=== PATIENT | male | born 1960 | race Caucasian/White ===

== ENCOUNTER 2024-10-03 17:53 | Emergency (ER) | payer SELFPAY ==
[2024-10-03 17:55] VITALS: BP 153/88
--- NOTE | 2024-10-03 18:21 | ED.MUSCINJ ---
HPI-Injury
<Caden Guzman PA-C - Last Filed: 10/03/24 20:13>
General
Chief Complaint: Trauma Significant Mechanism
Source: patient
Exam Limitations: none
Time Seen by Provider: 10/03/24 18:11
History of Present Illness-Injury
Initial Injury comments:
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 He tripped and fell forward down a 12 foot embankment. He felt crunching in his chest and he complains of pain in the left buttock. He felt
initially like he was going to pass out but that has since resolved. He notes mild abdominal pain as well. He is not anticoagulated.
Phy Exam
<Caden Guzman PA-C - Last Filed: 10/03/24 20:13>
Physical Exam
Physical Exam:
General: Well-appearing male no acute respiratory distress
HEENT normocephalic atraumatic pupils equal round reactive to light
Heart: Regular rate and rhythm no murmurs
Lungs: Breath sounds heard in all crandall
Abdomen is soft mildly tender no ecchymosis
MSK exam: The patient is tender over the anterior chest wall without step-off or deformity the left posterior buttock is tender he is tender mildly diffusely about the thoracolumbar spine
Skin is intact without laceration
Neurologic alert and oriented good sensation and strength in the upper and lower extremities
Injury Course
<Caden Guzman PA-C - Last Filed: 10/03/24 20:13>
Orders/Labs/Results
Orders:
Orders
10/03/24 18:18
CT Cervical Spine W/o Iv Contr Urgent
Comment:
Reason For Exam: fall
CT Chest/abd/pel W Iv Cont Urgent
Comment:
Reason For Exam: trauma
CT Head W/o Iv Contrast Urgent
Comment:
Reason For Exam: fall
10/03/24 18:26
Complete Blood Count/With Diff Urgent
Comprehensive Metabolic Panel Urgent
Abnormal Lab Results
10/03/24
18:26
RBC 4.13 L 10^6/uL
(4.70-6.10)
Hgb 12.9 L g/dL
(13.0-18.0)
Hct 38.1 L %
(39.0-52.0)
MCH 31.2 H pg
(27.0-31.0)
MPV 10.6 H fL
(7.4-10.4)
Immature Gran % 0.6 H %
(0-0.5)
Lymphocytes % 19.6 L %
(20.5-51.1)
Monocytes % 9.4 H %
(1.7-9.3)
Chloride 110 H mmol/L
(98-107)
BUN 24 H mg/dl
(9-20)
Glucose 135 H mg/dl
(70-99)
10/03/24 18:26
10/03/24 18:26
Estherlt;Jean Donaldson, DO - Last Filed: 10/03/24 19:00>
Orders/Labs/Results
Orders:
Orders
10/03/24 18:18
CT Cervical Spine W/o Iv Contr Urgent
Comment:
Reason For Exam: fall
CT Chest/abd/pel W Iv Cont Urgent
Comment:
Reason For Exam: trauma
CT Head W/o Iv Contrast Urgent
Comment:
Reason For Exam: fall
10/03/24 18:26
Complete Blood Count/With Diff Urgent
Comprehensive Metabolic Panel Urgent
Abnormal Lab Results
10/03/24
18:26
RBC 4.13 L 10^6/uL
(4.70-6.10)
Hgb 12.9 L g/dL
(13.0-18.0)
Hct 38.1 L %
(39.0-52.0)
MCH 31.2 H pg
(27.0-31.0)
MPV 10.6 H fL
(7.4-10.4)
Immature Gran % 0.6 H %
(0-0.5)
Lymphocytes % 19.6 L %
(20.5-51.1)
Monocytes % 9.4 H %
(1.7-9.3)
Chloride 110 H mmol/L
(98-107)
BUN 24 H mg/dl
(9-20)
Glucose 135 H mg/dl
(70-99)
10/03/24 18:26
10/03/24 18:26
<Caden Guzman PA-C - Last Filed: 10/03/24 20:13>
MDM/Problems Addressed
Differential Diagnosis Includes:
Fall down a steep embankment multiple areas of tenderness including the chest and posterior pelvis and back. CT of head cervical spine chest abdomen pelvis ordered
<Caden Guzman PA-C - Last Filed: 10/03/24 20:13>
*Critical Care Note
Total Time (30-74mins, 75-104mins- exclusive of procedures): Not Applicable
<Caden Guzman PA-C - Last Filed: 10/03/24 20:13>
Update Note
Update Note:
CT head and cervical spine negative. CT chest abdomen pelvis demonstrates superior endplate compression fracture of T11 as well as a nondisplaced fracture of the right fifth rib at the costal chondral junction at the sternum. There is
intramuscular hematoma of the gluteus but no pelvic fracture. Recommended rest avoidance of heavy lifting or twisting. Stable for follow-up
ED Attending Note
<Caden Guzman PA-C - Last Filed: 10/03/24 20:13>
-
Portions of this chart may have been created with voice recognition software.� Occasional wrong word or��sound alike� substitutions may have occurred due to the inherent limitations of voice recognition software.
<Jean Donaldson DO - Last Filed: 10/03/24 19:00>
ED Attending Note
Patient seen and examined by attending physician: Yes
I performed the substantive portion of visit, reviewed & personally made and approve the management plan that is documented in note by myself or ASH.: Yes
ED Attending Note:
I evaluated the patient at bedside. The patient does have some tenderness to the lower sternal region. He also reports some pain in the buttock region.
Discharge Plan
Departure
Patient Disposition: Home (Routine Discharge)
Date of Disposition: 10/03/24
Time of Disposition: 20:12
Patient with high blood pressure during this ER visit?: No
Discharge Problem:
Compression fracture, Fracture, rib
Instructions: Vertebral compression fracture
Activity Restrictions/Additional Instructions:
Rest. Use ibuprofen or Tylenol for pain. Avoid heavy lifting or twisting. Return if worse otherwise follow-up with your doctor
Interventions
Interventions:
*Risk Screen - Suicide Last Done: 10/03/24 17:55
*Neglect/Abuse Screening Last Done: 10/03/24 17:55
Discharge Date and Time
Print Language: [place]
[2024-10-03 18:31] LABS: % Basophils 0.7 % (0-2); % Eosinophils 2.2 % (0-6); % Immature Granulocytes 0.6 % (0-0.5); % Lymphocytes 19.6 % (20.5-51.1); % Monocytes 9.4 % (1.7-9.3); % Neutrophils 67.5 % (42.2-75.2); Absolute Basophils 0.1 10^3/uL (0-0.2); Absolute Eosinophils 0.2 10^3/uL (0-0.7); Absolute Lymphocytes 1.3 10^3/uL (1.2-3.4); Absolute Monocytes 0.6 10^3/uL (0.1-0.6); Absolute Neutrophils 4.5 10^3/uL (1.4-6.5); Hematocrit 38.1 % (39.0-52.0); Hemoglobin 12.9 g/dL (13.0-18.0); Mean Corp Hgb Conc. 33.9 g/dL (33.0-37.0); Mean Corpuscular Hgb 31.2 pg (27.0-31.0); Mean Corpuscular Volume 92.3 fL (80.0-94.0); Mean Platelet Volume 10.6 fL (7.4-10.4); Nucleated Red Blood Cells % 0 % (-); Platelet Count 193 10^3/uL (130-400); Red Blood Cell Count 4.13 10^6/uL (4.70-6.10); Red Cell Dist. Width 12.9 % (11.5-14.5); White Blood Cell Count 6.7 10^3/uL (4.8-10.8)
[2024-10-03 18:46] LABS: ALT (SGPT) 26 U/L (0-50); AST (SGOT) 25 U/L (17-59); Alkaline Phosphatase 42 U/L (38-126); Blood Urea Nitrogen 24 mg/dl (9-20); Calcium 9.4 mg/dl (8.4-10.2); Carbon Dioxide 24 mmol/L (22-30); Chloride 110 mmol/L (98-107); Glucose 135 mg/dl (70-99); Sodium 141 mmol/L (135-145); Total Bilirubin 0.4 mg/dl (0.2-1.3); Total Protein 6.4 g/dl (6.3-8.2); eGFR > 60.00
[2024-10-03 19:49] VITALS: BP 126/75
== END 2024-10-03 20:40 | disposition home or self-care (01) ==
LOC: EMR 17:53
PROVIDERS: Physician Assistant; EMERGENCY PHYSICIAN Emergency Medicine
DX: S22.080A Wedge compression fracture of T11-T12 vertebra, initial encounter for closed fracture (principal); S22.31XA Fracture of one rib, right side, initial encounter for closed fracture; W17.81XA Fall down embankment (hill), initial encounter
CPT/HCPCS: 99284; 70450; 71260; 72125; 74177; 80053; 85025; Q9967

== ENCOUNTER 2025-04-11 06:33 | Day surgery (SDC) | payer OTHER, SELFPAY | END 2025-04-11 15:27 | disposition home or self-care (01) | LOC: GI 06:33 | PROVIDERS: ATTENDING PHYSICIAN Internal Medicine Gastroenterology | DX: K57.30 Diverticulosis of large intestine without perforation or abscess without bleeding (principal); K64.8 Other hemorrhoids; Q39.9 Congenital malformation of esophagus, unspecified; D12.2 Benign neoplasm of ascending colon; D12.5 Benign neoplasm of sigmoid colon; K63.5 Polyp of colon | CPT/HCPCS: 45385; 45380; 88305 ==